=== PATIENT | female | born 1975 | race African-American/Black ===

== ENCOUNTER 2016-10-08 10:58 | Observation (INO) | payer MEDICAID ==
[~2016-10-08] VITALS: Ht 175.3 cm; Wt 117.3 kg
[2016-10-08] VITALS (7 sets, daily range): BP systolic 141–189; BP diastolic 78–128; PULSE 47–69; TEMP 97.9–98.7
[~2016-10-08 10:58] MED LIST: PHENERGAN 25 TA25 MG PO; TYLENOL 500MG500 MG
[2016-10-08 12:02] LABS: BASO % 0.6 % (0.0-2.0); EOS # 0.2 (0.0-0.7); EOS % 3.9 % (0-4.0); GRAN # 2.2 (1.4-6.5); LYMPH # 2.1 (1.2-3.4); LYMPH % 41.4 % (20.0-51.0); MEAN CELL VOLUME 79 fl (80.0-100.0); MEAN CORPUSCULAR HGB CONC 29 g/dl (33.0-37.0); MEAN PLATELET VOLUME 10.1 fl (7.4-10.4); MONO # 0.5 (0.1-0.6); MONO % 9.9 % (1.7-9.3); PLATELET COUNT 365 K/mm3 (130-400); RED BLOOD COUNT 4.28 M/mm3 (4.10-5.30); REDCELL DISTRIBUTION WIDTH-CV 20.5 % (11.5-14.5); WHITE BLOOD COUNT 5.1 K/mm3 (4.8-10.8)
[2016-10-08 12:04] LABS: MEAN CORPUSCULAR HEMOGLOBIN 23 pg (27.0-31.0)
[2016-10-08 12:13] LABS: ADJUSTED CALCIUM 9.2 mg/dL (8.4-10.2); ALBUMIN 3.9 gm/dL (3.5-5.0); BILIRUBIN,TOTAL 0.6 mg/dL (0.0-1.0); CALCIUM 9.1 mg/dL (8.4-10.2); CREATININE, serum 0.73 mg/dL (0.52-1.25); POTASSIUM 4.4 mmol/L (3.4-5.0); TOTAL PROTEIN 7.5 gm/dL (6.4-8.2)
[2016-10-09] VITALS (9 sets, daily range): BP systolic 107–179; BP diastolic 63–110; PULSE 63–75; TEMP 97.6–98.6
[2016-10-09 07:04] LABS: CHOLESTEROL 117 mg/dL (120-200); HDL CHOLESTEROL 37 mg/dL; LDL CHOLESTEROL 55 mg/dL; TRIGLYCERIDE 126 mg/dL
[2016-10-09 07:23] LABS: MAGNESIUM 1.8 mg/dL (1.6-2.3)
[2016-10-09 07:26] LABS: C-REACTIVE PROTEIN < 0.5 mg/dL (0.0-0.9)
[2016-10-09 11:23] LABS: FERRITIN 7 ng/mL (6-137)
[2016-10-09 11:57] LABS: TOTAL IRON BINDING CAPACITY 413 ug/dL (265-497)
[2016-10-09 12:32] LABS: RETIC % 0.8 % (0.5-3.52)
[2016-10-09 13:20] LABS: HOMOCYSTEINE 5.4 umol/L (4.0-14.0)
[2016-10-10 00:44] VITALS: BP 144/72; PULSE 57; TEMP 98.4
[2016-10-10 04:06] VITALS: BP 166/99; PULSE 56; TEMP 98.2
[2016-10-10 06:53] LABS: BASO % 0.4 % (0.0-2.0); EOS # 0.2 (0.0-0.7); EOS % 4.6 % (0-4.0); GRAN # 2.4 (1.4-6.5); GRAN % 52.9 % (42.2-75.2); LYMPH # 1.5 (1.2-3.4); LYMPH % 33.6 % (20.0-51.0); MEAN CELL VOLUME 79 fl (80.0-100.0); MEAN CORPUSCULAR HGB CONC 30 g/dl (33.0-37.0); MEAN PLATELET VOLUME 10.3 fl (7.4-10.4); MONO # 0.4 (0.1-0.6); MONO % 8.3 % (1.7-9.3); PLATELET COUNT 321 K/mm3 (130-400); RED BLOOD COUNT 4.11 M/mm3 (4.10-5.30); REDCELL DISTRIBUTION WIDTH-CV 20.1 % (11.5-14.5); WHITE BLOOD COUNT 4.6 K/mm3 (4.8-10.8)
[2016-10-10 07:00] LABS: HEMATOCRIT 32.3 % (37.0-47.0); HEMOGLOBIN 9.6 g/dl (12.5-16.0); MEAN CORPUSCULAR HEMOGLOBIN 23 pg (27.0-31.0)
[2016-10-10 07:51] VITALS: BP 144/71; PULSE 61; TEMP 98.3
[2016-10-10] MEDS ORDERED: LOPRESSOR 550 MG/TAB PO (08:40)
[2016-10-10] MEDS ORDERED: FERROUS SU325 MG/TAB PO (08:41)
[2016-10-10] MEDS ORDERED: PRINZIDE 12.5 M1 TA1 PO (08:48)
== END 2016-10-10 10:21 | disposition home or self-care (01) ==
LOC: COL.ER 10:58 → MEDICAL 13:07
PROVIDERS: Emergency Medicine; Family Medicine; Physician Assistant
DX: R20.0 Anesthesia of skin (principal); R27.0 Ataxia, unspecified; I10 Essential (primary) hypertension; D50.9 Iron deficiency anemia, unspecified; F17.210 Nicotine dependence, cigarettes, uncomplicated; R51 Headache; Z79.01 Long term (current) use of anticoagulants; Z82.3 Family history of stroke; Z83.3 Family history of diabetes mellitus; Z82.49 Family history of ischemic heart disease and other diseases of the circulatory system; Z79.4 Long term (current) use of insulin
CPT/HCPCS: 99222-AI; 99239; G0378; G8978-GP; G8979-GP; G8980-GP; G8987-GO; G8988-GO; G9168-GN; G9169-GN; J1650; J7030

== ENCOUNTER 2017-05-18 09:19 | Emergency (ER) | payer MEDICAID ==
[~2017-05-18] VITALS: Ht 175.3 cm; Wt 90.9 kg
[~2017-05-18 09:19] MED LIST changes: +FERROUS SU325 MG/TAB PO; +LOPRESSOR 550 MG/TAB PO; +PRINZIDE 12.5 M1 TA1 PO
[2017-05-18 09:22] VITALS: TEMP 97.8
[2017-05-18 10:02] LABS: BASO % 0.4 % (0.0-2.0); EOS % 0.4 % (0-4.0); GRAN # 5.4 (1.4-6.5); GRAN % 74.1 % (42.2-75.2); HEMATOCRIT 35.1 % (37.0-47.0); HEMOGLOBIN 10.9 g/dl (12.5-16.0); LYMPH # 1.4 (1.2-3.4); MEAN CELL VOLUME 85 fl (80.0-100.0); MEAN CORPUSCULAR HEMOGLOBIN 26 pg (27.0-31.0); MEAN CORPUSCULAR HGB CONC 31 g/dl (33.0-37.0); MONO # 0.4 (0.1-0.6); PLATELET COUNT 417 K/mm3 (130-400); RED BLOOD COUNT 4.14 M/mm3 (4.10-5.30); REDCELL DISTRIBUTION WIDTH-CV 14.7 % (11.5-14.5)
[2017-05-18 10:15] LABS: ALANINE AMINOTRANSFERASE 32 U/L (9-52); ALBUMIN 4.3 gm/dL (3.5-5.0); ALKALINE PHOSPHATASE 77 U/L (50-136); ANION GAP 8 mmol/L (7-16); AST,SGOT 23 U/L (15-37); BILIRUBIN,TOTAL 0.5 mg/dL (0.0-1.0); BLOOD UREA NITROGEN 13 mg/dL (7-17); CALCIUM 9.8 mg/dL (8.4-10.2); CARBON DIOXIDE 21 mmol/L (22-30); CHLORIDE 107 mmol/L (98-107); CREATININE, serum 0.77 mg/dL (0.52-1.25); GLUCOSE 122 mg/dL (74-106); LIPASE 85 U/L (23-300); POTASSIUM 3.8 mmol/L (3.4-5.0); SODIUM 136 mmol/L (137-145); TOTAL PROTEIN 8.3 gm/dL (6.4-8.2)
[2017-05-18 10:24] LABS: C-REACTIVE PROTEIN < 0.5 mg/dL (0.0-0.9)
[2017-05-18 11:44] VITALS: BP 173/75; PULSE 67
== END 2017-05-18 11:52 | disposition home or self-care (01) ==
LOC: COL.ER 09:19
PROVIDERS: Physician Assistant
DX: R11.10 Vomiting, unspecified (principal); R19.7 Diarrhea, unspecified; R10.11 Right upper quadrant pain; I10 Essential (primary) hypertension; E66.9 Obesity, unspecified; Z98.890 Other specified postprocedural states; Z68.29 Body mass index [BMI] 29.0-29.9, adult
CPT/HCPCS: J1170; J2405; J2765; J7030

== ENCOUNTER → 2017-09-08 | Outpatient (CLI) | payer MEDICAID ==
[2017-09-08 14:38] LABS: BASO % 0.6 % (0.0-2.0); EOS # 0.2 (0.0-0.7); GRAN # 2.6 (1.4-6.5); GRAN % 51.7 % (42.2-75.2); HEMOGLOBIN 10.8 g/dl (12.5-16.0); LYMPH # 1.6 (1.2-3.4); LYMPH % 32.7 % (20.0-51.0); MEAN CELL VOLUME 80 fl (80.0-100.0); MEAN CORPUSCULAR HEMOGLOBIN 24 pg (27.0-31.0); MEAN CORPUSCULAR HGB CONC 31 g/dl (33.0-37.0); MEAN PLATELET VOLUME 10.5 fl (7.4-10.4); MONO # 0.5 (0.1-0.6); MONO % 10.8 % (1.7-9.3); PLATELET COUNT 330 K/mm3 (130-400); RED BLOOD COUNT 4.42 M/mm3 (4.10-5.30); REDCELL DISTRIBUTION WIDTH-CV 17.5 % (11.5-14.5)
[2017-09-08 14:39] LABS: HEMATOCRIT 35.4 % (37.0-47.0)
[2017-09-08 14:46] LABS: ALANINE AMINOTRANSFERASE 23 U/L (9-52); ALBUMIN 3.7 gm/dL (3.5-5.0); ALKALINE PHOSPHATASE 81 U/L (50-136); ANION GAP 8 mmol/L (7-16); AST,SGOT 129 U/L (15-37); BILIRUBIN,TOTAL 0.4 mg/dL (0.0-1.0); BLOOD UREA NITROGEN 17 mg/dL (7-17); CALCIUM 10.2 mg/dL (8.4-10.2); CARBON DIOXIDE 25 mmol/L (22-30); CHLORIDE 108 mmol/L (98-107); CHOLESTEROL 146 mg/dL (120-200); CHOLESTEROL RISK RATIO 3.5; CREATININE, serum 0.84 mg/dL (0.52-1.25); GLUCOSE 96 mg/dL (74-106); HDL CHOLESTEROL 41 mg/dL; LDL CHOLESTEROL 89 mg/dL; POTASSIUM 4.1 mmol/L (3.4-5.0); SODIUM 141 mmol/L (137-145); TOTAL PROTEIN 8.1 gm/dL (6.4-8.2); TRIGLYCERIDE 80 mg/dL
[2017-09-08 14:47] LABS: TRICYCLIC ANTIDEPRESS URINE NEGATIVE
[2017-09-08 15:07] LABS: HCG,QUANTITATIVE < 2 mIU/mL (0-5)
[2017-09-08 15:15] LABS: THYROID STIMULATING HORMONE 0.767 uIU/mL (0.465-4.680)
== END ==
LOC: COL.LAB 09:49
PROVIDERS: Family Medicine
DX: Z13.1 Encounter for screening for diabetes mellitus (principal); Z13.220 Encounter for screening for lipoid disorders; I10 Essential (primary) hypertension; R20.8 Other disturbances of skin sensation; N91.2 Amenorrhea, unspecified

== ENCOUNTER 2017-09-15 20:15 | Emergency (ER) | payer MEDICAID ==
[~2017-09-15] VITALS: Ht 175.3 cm; Wt 106.8 kg
[2017-09-15 20:32] VITALS: TEMP 100
[2017-09-15] MEDS ORDERED: HCTZ 25MG TAB25 MG PO (20:32)
[2017-09-15 20:54] LABS: BASO % 0.2 % (0.0-2.0); EOS % 0.4 % (0-4.0); GRAN # 3.9 (1.4-6.5); GRAN % 68.6 % (42.2-75.2); HEMATOCRIT 39.1 % (37.0-47.0); LYMPH # 1.3 (1.2-3.4); LYMPH % 22.6 % (20.0-51.0); MEAN CELL VOLUME 79 fl (80.0-100.0); MEAN CORPUSCULAR HEMOGLOBIN 24 pg (27.0-31.0); MEAN CORPUSCULAR HGB CONC 31 g/dl (33.0-37.0); MEAN PLATELET VOLUME 10.2 fl (7.4-10.4); MONO # 0.5 (0.1-0.6); PLATELET COUNT 354 K/mm3 (130-400); RED BLOOD COUNT 4.95 M/mm3 (4.10-5.30); REDCELL DISTRIBUTION WIDTH-CV 17.4 % (11.5-14.5)
[2017-09-15 21:58] LABS: ALBUMIN 4.1 gm/dL (3.5-5.0); BILIRUBIN,TOTAL 0.6 mg/dL (0.0-1.0); C-REACTIVE PROTEIN 0.9 mg/dL (0.0-0.9); CALCIUM 10.2 mg/dL (8.4-10.2); CREATININE, serum 0.77 mg/dL (0.52-1.25); TOTAL PROTEIN 8.5 gm/dL (6.4-8.2)
[2017-09-15 22:31] LABS: COLLECTION METHOD CLEAN CATCH
[2017-09-15 22:39] LABS: MUCOUS Present /lpf; PH 5 (5-8); URINE APPEARANCE Cloudy; URINE BACTERIA None Seen /hpf; URINE BILIRUBIN Negative (NEGATIVE); URINE BLOOD 3+ (NEGATIVE); URINE COLOR Yellow; URINE GLUCOSE 1+ (NEGATIVE); URINE KETONE 2+ (NEGATIVE); URINE LEUKOCYTE ESTERASE Negative (NEGATIVE); URINE NITRATE Negative (NEGATIVE); URINE PROTEIN(semi-quant) 2+ (NEGATIVE); URINE UROBILINOGEN Negative (NEGATIVE)
[2017-09-15] MEDS ORDERED: ZOFRAN 4MG T4 MG/TAB PO (22:47)
[2017-09-15] MEDS ORDERED: NORVASC 5MG5 MG/TAB PO (22:53)
[2017-09-15 23:48] VITALS: BP 161/93; PULSE 47
== END 2017-09-16 00:01 | disposition home or self-care (01) ==
LOC: COL.ER 20:15
PROVIDERS: Emergency Medicine
DX: I10 Essential (primary) hypertension (principal); R10.13 Epigastric pain; R11.2 Nausea with vomiting, unspecified; F17.210 Nicotine dependence, cigarettes, uncomplicated; Z98.890 Other specified postprocedural states
CPT/HCPCS: J2270; J2405; J2550; J7030

== ENCOUNTER → 2017-10-06 | Outpatient (CLI) | payer MEDICAID ==
[~2017-10-06] MED LIST changes: +HCTZ 25MG TAB25 MG PO; +NORVASC 5MG5 MG/TAB PO; +ZOFRAN 4MG T4 MG/TAB PO
[2017-10-06 16:30] LABS: HIV 1/2 Antibodies Non-Reactive; HIV-1p24 Antigen Non-Reactive
== END ==
LOC: COL.LAB 09:36
PROVIDERS: Family Medicine
DX: Z11.3 Encounter for screening for infections with a predominantly sexual mode of transmission (principal)

== ENCOUNTER 2019-09-12 18:09 | Inpatient (IN) | payer MEDICAID ==
[2019-09-12] VITALS (105 sets, daily range): BP systolic 116–147; BP diastolic 62–98; PULSE 94–111; TEMP 97.5–98.4; O2SAT 85–100
[~2019-09-12] VITALS: Ht 175.3 cm; Wt 105.4 kg
[2019-09-12 18:42] LABS: MEAN CELL VOLUME 92 fl (80.0-100.0); MEAN CORPUSCULAR HGB CONC 32 g/dl (33.0-37.0); MEAN PLATELET VOLUME 9.9 fl (7.4-10.4); PLATELET COUNT 338 K/mm3 (130-400); RED BLOOD COUNT 1.23 M/mm3 (4.10-5.30); REDCELL DISTRIBUTION WIDTH-CV 15.4 % (11.5-14.5)
[2019-09-12 18:46] LABS: HEMATOCRIT 11.3 % (37.0-47.0); HEMOGLOBIN 3.6 g/dl (12.5-16.0); MEAN CORPUSCULAR HEMOGLOBIN 29 pg (27.0-31.0)
[2019-09-12 18:52] LABS: BILIRUBIN,TOTAL 0.2 mg/dL (0.0-1.0); CALCIUM 8.8 mg/dL (8.4-10.2); CREATININE, serum 1.83 (0.52-1.25); POTASSIUM 4.5 mmol/L (3.4-5.0); TOTAL PROTEIN 5.7 gm/dL (6.4-8.2)
[2019-09-12 18:57] LABS: ANISOCYTOSIS 2+; HYPOCHROMIA 2+; LYMPHOCYTE 21 % (20.0-51.0); NEUTROPHILS 78 % (42.0-75.2); PLATELET ESTIMATE NORMAL (NORMAL)
[2019-09-12 19:05] LABS: TROPONIN-I 0.154 ng/mL (0.000-0.035)
--- NOTE | 2019-09-12 20:40 | NUR ---
Pt report received from Chandler Rao RN in ED.
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
[2019-09-13] VITALS (679 sets, daily range): BP systolic 106–158; BP diastolic 57–116; PULSE 80–101; TEMP 97.9–99.2; O2SAT 59–100
[2019-09-13] MEDS ORDERED: ADVIL200 MG PO (01:19)
[2019-09-13 02:48] LABS: HEMATOCRIT 16.3 % (37.0-47.0); HEMOGLOBIN 5.4 g/dl (12.5-16.0)
[2019-09-13 05:24] LABS: CREATININE, serum 1.57 (0.52-1.25); POTASSIUM 4.2 mmol/L (3.4-5.0)
--- NOTE | 2019-09-13 07:05 | NUR ---
Report provided to Desiree WHITAKER.
--- NOTE | 2019-09-13 07:21 | NUR ---
Report received from JULIANNE Machuca. Patient resting in bed with no complaints. 3rd unit of PRBC is infusing. VS stable. Care taken over at this time.
--- NOTE | 2019-09-13 08:50 | NUR ---
DR. DEL ANGEL IN ROOM TO SEE PATIENT. SHE IS UNABLE TO FORM SENTENCES AND C/O NUMBNESS TO RIGHT ARM AND HAND. STAT CT HEAD ORDERED.
[2019-09-13 10:00] LABS: COLLECTION METHOD CLEAN CATCH
[2019-09-13 10:07] LABS: PH 5 (5-8); SQUAMOUS EPITHELIAL 0-2 /hpf; URINE APPEARANCE Clear; URINE BACTERIA Rare /hpf; URINE BILIRUBIN Negative (NEGATIVE); URINE BLOOD Negative (NEGATIVE); URINE COLOR Yellow; URINE GLUCOSE Negative (NEGATIVE); URINE KETONE Negative (NEGATIVE); URINE LEUKOCYTE ESTERASE Negative (NEGATIVE); URINE NITRATE Negative (NEGATIVE); URINE PROTEIN(semi-quant) Negative (NEGATIVE); URINE RBC None Seen /hpf; URINE UROBILINOGEN Negative (NEGATIVE); URINE WBC 0-2 /hpf
--- NOTE | 2019-09-13 11:25 | NUR ---
KG met with the patient to discuss discharge plan. The patient states that she lives in [place] with her mother, aunt, and four children: Patricia, Mechelle, Vonnie, and Georgi. She reports that she was needing assistance with using the restroom prior to hospitalization and does not have any DME. The patient was seeing Dr. Margareth Albert, but has not been set up with a new PCP since Dr. Albert left the clinic. She reports that she used to go to Dr. Garfield Tucker and would be interested in getting set back up with him. KG contacted Dr. Tucker's office and secured the patient an appointment on , 09/20, at 1000, via a video visit from Dr. Tucker's CYCLE ANALYST, Alysha Sanchez. KG notified the patient of appointment. SW to inform the patient's RN of appointment. The patient does not have advanced directives completed. She states that she is not and that she has six children. Five adult children. The patient's RN, Desiree, provided KG with the patient's son, Georgi's phone number. (#[phone]). The patient plans to return home upon discharge. She states that she has concerns with using the restroom though. She states she has been having syncopal while going to and using the restroom. KG contacted and updated the patient's son, Georgi. Georgi reports that the patient only lives with her mother and four children. He confirms that the patient has six children: Mechelle, Patricia, Tabias, Justin, Raj, and himself. The patient is to have an EGD today. SW to continue to follow.
--- NOTE | 2019-09-13 12:30 | NUR ---
PATIENT C/O'S PAIN TO HEAD AND RIGHT SIDE OF ABDOMEN. DR. DEL ANGEL ON UNIT. HE GIVES ORDER FOR MORPHINE. WILL ADMINISTER AND CONTINUE TO MONITOR.
[2019-09-13 13:15] LABS: HEMATOCRIT 21.8 % (37.0-47.0); HEMOGLOBIN 7.3 g/dl (12.5-16.0)
--- NOTE | 2019-09-13 13:50 | NUR ---
PATIENT RETURNS FROM ENDO AT THIS TIME. SHE IS ALERT AND ORIENTED. ASKING FOR PAIN MEDICATION FOR HEADACHE.
--- NOTE | 2019-09-13 14:39 | NUR ---
The patient was interested in completing a DPOA-HC. She designated her son Georgi Muñoz and designated her other son, Raj Michael, as the alternate. SW and RT, Patience, witnessed the patient's signature. The patient was provided with the original and some copies. A copy was placed in the patient's chart.
--- NOTE | 2019-09-13 15:06 | NUR ---
PATIENT GOES TO MRI AT THIS TIME.
--- NOTE | 2019-09-13 16:46 | NUR ---
UPDATE GIVEN TO SON TIERRA. PHONE NUMBER FOR [facility] IS [phone].
--- NOTE | 2019-09-13 19:15 | NUR ---
REPORT GIVEN TO JULIANNE GALINDO.
[2019-09-14] VITALS (471 sets, daily range): BP systolic 130–159; BP diastolic 67–112; PULSE 58–83; TEMP 98–99.5; O2SAT 54–100
[2019-09-14 01:05] LABS: HEMATOCRIT 19.7 % (37.0-47.0); HEMOGLOBIN 6.7 g/dl (12.5-16.0)
--- NOTE | 2019-09-14 07:30 | NUR ---
Report received from JULIANNE Batista.
--- NOTE | 2019-09-14 07:48 | NUR ---
Report given to Oliva Choi RN.
--- NOTE | 2019-09-14 08:00 | NUR ---
Assessment completed. Pt eating breakfast in bed and watching tv. PT A/Ox4. Denies any pain. Discussed plan of care r/t lab draws post blood transfusion and dr dominguez. Pt asking if she can go home today. Explained drs will see her first and labs drawn, then will discuss plan for today. Pt verbalized understanding. Call light in reach.
--- NOTE | 2019-09-14 08:49 | NUR ---
Pt states she wishes to go home. She states she refuses to receive more blood transfusions. Discussed risks involved with refusing medical advice including continued bleed, anemia and risk of potential . Pt states she wishes to talk to the doctor and wants to go home to see her kids. Dr Jack updated on pt's status and refusing medical care.
--- NOTE | 2019-09-14 08:57 | NUR ---
Dr Jack at bedside discussing plan of care with pt.
[2019-09-14 08:59] LABS: CALCIUM 8.9 mg/dL (8.4-10.2); CREATININE, serum 1.02 (0.52-1.25)
[2019-09-14 09:07] LABS: BASO % 0.3 % (0.0-2.0); EOS # 0.1 (0.0-0.7); EOS % 0.7 % (0-4.0); GRAN # 4.6 (1.4-6.5); GRAN % 64.1 % (42.2-75.2); LYMPH % 28.4 % (20.0-51.0); MEAN CELL VOLUME 90 fl (80.0-100.0); MEAN CORPUSCULAR HGB CONC 33 g/dl (33.0-37.0); MEAN PLATELET VOLUME 9.6 fl (7.4-10.4); MONO # 0.4 (0.1-0.6); MONO % 5.9 % (1.7-9.3); RED BLOOD COUNT 3.02 M/mm3 (4.10-5.30); REDCELL DISTRIBUTION WIDTH-CV 15.4 % (11.5-14.5)
[2019-09-14 09:18] LABS: HEMATOCRIT 27.2 % (37.0-47.0); HEMOGLOBIN 8.9 g/dl (12.5-16.0); MEAN CORPUSCULAR HEMOGLOBIN 29 pg (27.0-31.0); PLATELET COUNT 221 K/mm3 (130-400)
--- NOTE | 2019-09-14 13:45 | NUR ---
Phone report given to David, Medical RN. Room not ready yet. David will call back when room is cleaned.
--- NOTE | 2019-09-14 14:58 | NUR ---
Pt transferred to room 357 via wheelchair at 1445. Pt transferred to bed with x1 assist. Steady gait. JULIANNE Hernandez in room. Pt in bed with call light in reach.
--- NOTE | 2019-09-14 19:56 | NUR ---
Assessment complete. Lungs clear. Heart sounds normal. Bowels active x4. Pulses strong throughout. No edema noted. IV right hand without complications. Patient alert and orientated. Appears anxious-reports feeling cold and ready to go home. Denies pain. Denies needs. Gown changed and sheet changed. Call light in reach. Will monitor
--- NOTE | 2019-09-15 00:15 | NUR ---
Up to restroom and returned to bed. Denies needs. Call light in reach.
--- NOTE | 2019-09-15 02:19 | NUR ---
Resting in bed. Denies needs. Call light in reach.
[2019-09-15 04:11] VITALS: BP 153/91; PULSE 70; TEMP 98.1
--- NOTE | 2019-09-15 04:22 | NUR ---
Patient up to restroom and returned to bed. Denies needs. Denies pain. Call light in reach.
--- NOTE | 2019-09-15 06:41 | NUR ---
Patient had uneventful night. Resting in bed this AM. Call light in reach.
--- NOTE | 2019-09-15 07:00 | NUR ---
Report received from JULIANNE Aparicio. PT in bed resting, refusing lab but Dr. Brown and webbing seamer pound net nruse trying to discuss need for lab check in order to dishcarge patient as medically stable. Will continue to monitor.
--- NOTE | 2019-09-15 07:31 | NUR ---
Report given to JULIANNE Beckford
[2019-09-15 08:12] LABS: BASO % 0.3 % (0.0-2.0); EOS # 0.1 (0.0-0.7); EOS % 1.3 % (0-4.0); GRAN # 3.7 (1.4-6.5); GRAN % 60.2 % (42.2-75.2); LYMPH # 1.9 (1.2-3.4); LYMPH % 30.8 % (20.0-51.0); MEAN CELL VOLUME 89 fl (80.0-100.0); MEAN CORPUSCULAR HGB CONC 34 g/dl (33.0-37.0); MEAN PLATELET VOLUME 9.4 fl (7.4-10.4); MONO # 0.4 (0.1-0.6); MONO % 7.1 % (1.7-9.3); PLATELET COUNT 263 K/mm3 (130-400); REDCELL DISTRIBUTION WIDTH-CV 15.4 % (11.5-14.5)
[2019-09-15 08:16] LABS: BILIRUBIN,TOTAL 0.5 mg/dL (0.0-1.0); CALCIUM 9.1 mg/dL (8.4-10.2); CREATININE, serum 0.88 (0.52-1.25); POTASSIUM 3.7 mmol/L (3.4-5.0); TOTAL PROTEIN 5.8 gm/dL (6.4-8.2)
[2019-09-15 08:17] LABS: HEMOGLOBIN 8.4 g/dl (12.5-16.0); MEAN CORPUSCULAR HEMOGLOBIN 30 pg (27.0-31.0)
[2019-09-15 09:23] VITALS: BP 151/93; PULSE 83; TEMP 97.5
--- NOTE | 2019-09-15 10:31 | NUR ---
Assessment charted. PT feeling well, discussed lab results and pt very eager to discharge. Will continue to monitor.
[2019-09-15] MEDS ORDERED: FERROUS SU325 MG/TAB PO (10:39)
[2019-09-15] MEDS ORDERED: NORVASC 5MG5 MG/TAB PO (10:41)
[2019-09-15] MEDS ORDERED: CARAFATE 1GM1 G PO (10:42)
[2019-09-15] MEDS ORDERED: PROTONIX 40MG T40 MG PO (10:42)
--- NOTE | 2019-09-15 12:10 | NUR ---
Discharge teaching completed at this time, pt received packet, answered all questions, reviewed f/u appointments, knows [facility] office should call with appointment date and time. INT dc'd, tip intact. Called son and spoke with him, he picked up pt at this time at the lockstitch front maker. Escorted out via w/c with medical staff, left with all belongings, criteria met.
--- NOTE | 2019-10-17 10:14 | NUR ---
This RN recieved phone call from patient stating was discharged home on Carafate QID x 2 weeks and has only been taking at home once daily since discharge. Questions whether to continue taking or stop since it's been longer than two weeks. Instructed patient to contact PCP for info and states no PCP at this time. Instructed to take medication as prescribed (QID ACHS) until medication gone and to establish with a new PCP.
== END 2019-09-15 12:10 | disposition home or self-care (01) | DRG 377 ==
LOC: COL.ER 18:09 → ICU 19:48 → MEDICAL 09-14 16:43
PROVIDERS: Emergency Medicine; Internal Medicine Gastroenterology; Student in an Organized Health Care Education/Training Program; ADMIT Student in an Organized Health Care Education/Training Program
PROC: 0DB78ZX Excision of Stomach, Pylorus, Via Natural or Artificial Opening Endoscopic, Diagnostic (ICD-10-PCS; principal; 2019-09-13 13:00)
DX: K25.4 Chronic or unspecified gastric ulcer with hemorrhage (principal); I21.A1 Myocardial infarction type 2; D62 Acute posthemorrhagic anemia; N17.9 Acute kidney failure, unspecified; G45.9 Transient cerebral ischemic attack, unspecified; I10 Essential (primary) hypertension; F17.210 Nicotine dependence, cigarettes, uncomplicated; E86.0 Dehydration; R73.9 Hyperglycemia, unspecified; R79.89 Other specified abnormal findings of blood chemistry
CPT/HCPCS: 99223-AI; 99232-AI; 99233-AI; 99239; A9585; C9113; J2270; J2704; J7030; P9016; Q9967

== ENCOUNTER 2020-07-05 12:23 | Observation (INO) | payer MEDICAID ==
[~2020-07-05] VITALS: Ht 175.3 cm; Wt 122.7 kg
[~2020-07-05 12:23] MED LIST changes: +ADVIL200 MG PO; +CARAFATE 1GM1 G PO; +PROTONIX 40MG T40 MG PO
[2020-07-05 13:02] LABS: BASO % 0.3 % (0.0-2.0); EOS # 0.1 (0.0-0.7); EOS % 1.2 % (0-4.0); GRAN % 59.8 % (42.2-75.2); HEMOGLOBIN 13.4 g/dl (12.5-16.0); LYMPH # 2.1 (1.2-3.4); MEAN CELL VOLUME 98 fl (80.0-100.0); MEAN CORPUSCULAR HEMOGLOBIN 30 pg (27.0-31.0); MEAN CORPUSCULAR HGB CONC 31 g/dl (33.0-37.0); MEAN PLATELET VOLUME 10.1 fl (7.4-10.4); MONO # 0.5 (0.1-0.6); MONO % 7.6 % (1.7-9.3); PLATELET COUNT 294 K/mm3 (130-400); RED BLOOD COUNT 4.41 M/mm3 (4.10-5.30); REDCELL DISTRIBUTION WIDTH-CV 13.2 % (11.5-14.5)
[2020-07-05 13:14] LABS: ALANINE AMINOTRANSFERASE 20 U/L (4-34); ALBUMIN 4.1 gm/dL (3.5-5.0); ALKALINE PHOSPHATASE 92 U/L (50-136); ANION GAP 8 mmol/L (7-16); AST,SGOT 38 U/L (15-37); BILIRUBIN,TOTAL 0.5 mg/dL (0.0-1.0); BLOOD UREA NITROGEN 14 mg/dL (7-17); CALCIUM 9.6 mg/dL (8.4-10.2); CARBON DIOXIDE 24 mmol/L (22-30); CHLORIDE 104 mmol/L (98-107); CREATININE, serum 0.78 (0.52-1.25); GLUCOSE 163 mg/dL (74-106); LIPASE 125 U/L (23-300); POTASSIUM 3.6 mmol/L (3.4-5.0); SODIUM 136 mmol/L (137-145); TOTAL PROTEIN 7.9 gm/dL (6.4-8.2)
[2020-07-05 13:25] LABS: TROPONIN-I < 0.012 ng/mL (0.000-0.035)
[2020-07-05 14:15] LABS: COLLECTION METHOD CLEAN CATCH
[2020-07-05 15:08] LABS: TRICYCLIC ANTIDEPRESS URINE NEGATIVE
[2020-07-05 15:18] LABS: MUCOUS Present /lpf; PH 6 (5-8); SQUAMOUS EPITHELIAL 0-2 /hpf; URINE APPEARANCE Clear; URINE BACTERIA None Seen /hpf; URINE BILIRUBIN Negative (NEGATIVE); URINE BLOOD Negative (NEGATIVE); URINE COLOR Yellow; URINE GLUCOSE 2+ (NEGATIVE); URINE KETONE Negative (NEGATIVE); URINE LEUKOCYTE ESTERASE Negative (NEGATIVE); URINE NITRATE Negative (NEGATIVE); URINE PROTEIN(semi-quant) Negative (NEGATIVE); URINE RBC 0-2 /hpf; URINE UROBILINOGEN Negative (NEGATIVE)
--- NOTE | 2020-07-05 20:28 | NUR ---
PATIENT ARRIVED TO ROOM 353 AT THIS TIME FROM THE ER. PATIENT ABLE TO MOVE HERSELF FROM THE ER CART TO THE BED. PATIENT IS LYING IN BED SNORING AT THIS TIME. NO S/S OF DISTRESS
[2020-07-05 20:32] VITALS: BP 159/89; PULSE 76; TEMP 97.5
[2020-07-05 23:45] VITALS: PULSE 72; TEMP 98.1
[2020-07-06 03:54] VITALS: BP 172/89; PULSE 67; TEMP 98.1
[2020-07-06 06:41] LABS: BASO % 0.1 % (0.0-2.0); GRAN # 5.6 (1.4-6.5); GRAN % 75.9 % (42.2-75.2); HEMATOCRIT 43.8 % (37.0-47.0); HEMOGLOBIN 14.5 g/dl (12.5-16.0); LYMPH # 1.3 (1.2-3.4); LYMPH % 17.7 % (20.0-51.0); MEAN CORPUSCULAR HEMOGLOBIN 31 pg (27.0-31.0); MEAN CORPUSCULAR HGB CONC 33 g/dl (33.0-37.0); MEAN PLATELET VOLUME 10.2 fl (7.4-10.4); MONO # 0.5 (0.1-0.6); MONO % 6.2 % (1.7-9.3); PLATELET COUNT 310 K/mm3 (130-400); REDCELL DISTRIBUTION WIDTH-CV 12.7 % (11.5-14.5)
[2020-07-06 06:51] LABS: ALBUMIN 4.4 gm/dL (3.5-5.0); BILIRUBIN,TOTAL 0.7 mg/dL (0.0-1.0); CALCIUM 9.8 mg/dL (8.4-10.2); CREATININE, serum 0.58 (0.52-1.25); POTASSIUM 3.8 mmol/L (3.4-5.0); TOTAL PROTEIN 8.6 gm/dL (6.4-8.2)
[2020-07-06 07:19] LABS: MEAN CELL VOLUME 93 fl (80.0-100.0)
--- NOTE | 2020-07-06 08:00 | NUR ---
Shift assessment complete. Pt lying in bed upon entry, reports chest pain 4/10 and declines pain meds at this time, denies nausea. A&Ox4. Heart RRR. Lungs CTA. INT to left FA w/o S/S complication. Denies needs at this time. Call light in reach.
[2020-07-06 09:19] VITALS: BP 190/93; PULSE 66; TEMP 98
--- NOTE | 2020-07-06 09:30 | NUR ---
Entered pt's room at 0900, pt shouted "be careful, I puked all over the floor." Large puddle of clear emesis noted on floor next to pt's bed and cleaned up. Pt reports nausea still present following vomiting. Brought pt emesis basin and administered zofran. Pt then reported chest pain had increased from 4 to 6. Tylenol administered. BP 190/93 at this time, hydralazine administered per orders. Continuing to monitor.
[2020-07-06 09:58] VITALS: BP 157/86; PULSE 84
[2020-07-06] MEDS ORDERED: NORVASC 10MG10 MG PO (12:43)
[2020-07-06] MEDS ORDERED: HCTZ 25MG TAB25 MG PO (12:53)
[2020-07-06 13:15] VITALS: BP 126/89; PULSE 111; TEMP 97.7
--- NOTE | 2020-07-06 13:45 | NUR ---
Discharge teaching discussed w/pt and all questions answered. IV to left forearm removed w/o S/S complication. Pt ambulated out escorted by this RN to family car at ED entrance. All belongings in tow.
--- NOTE | 2020-07-06 13:58 | NUR ---
Plan to return home independently. Patient reports that she has two sons that are apart of her care. Georgi and Raj .Patient reports PCP is Linda and RX obtained at [facility].Patient denies any care concerns or issues wih using DME. Patient report she may has transportation. No additional concerns.
[2020-07-26] MEDS ORDERED: OMNICEF 300MG300 MG PO (00:44)
== END 2020-07-06 13:50 | disposition home or self-care (01) ==
LOC: COL.ER 12:23 → MEDICAL 18:11
PROVIDERS: Physician Assistant; Student in an Organized Health Care Education/Training Program; ADMIT Family Medicine
DX: I16.0 Hypertensive urgency (principal); E72.51 Non-ketotic hyperglycinemia; E66.01 Morbid (severe) obesity due to excess calories; R55 Syncope and collapse; F17.210 Nicotine dependence, cigarettes, uncomplicated; Z86.73 Personal history of transient ischemic attack (TIA), and cerebral infarction without residual deficits; Z79.899 Other long term (current) drug therapy; Z20.822 Contact with and (suspected) exposure to COVID-19
CPT/HCPCS: 99223-AI; 99239; C9113; G0378; J0360; J1650; J2060; J2270; J2405; J7030

== ENCOUNTER 2020-07-25 18:36 | Emergency (ER) | payer MEDICAID ==
[~2020-07-25] VITALS: Ht 175.3 cm; Wt 111.4 kg
[~2020-07-25 18:36] MED LIST changes: +NORVASC 10MG10 MG PO
[2020-07-25 18:40] VITALS: TEMP 98.1
[2020-07-25 19:31] LABS: BASO % 0.4 % (0.0-2.0); EOS # 0.1 (0.0-0.7); EOS % 1.1 % (0-4.0); GRAN # 3.5 (1.4-6.5); GRAN % 65.6 % (42.2-75.2); HEMATOCRIT 37.3 % (37.0-47.0); LYMPH # 1.3 (1.2-3.4); LYMPH % 24.4 % (20.0-51.0); MEAN CELL VOLUME 93 fl (80.0-100.0); MEAN CORPUSCULAR HEMOGLOBIN 30 pg (27.0-31.0); MEAN CORPUSCULAR HGB CONC 32 g/dl (33.0-37.0); MEAN PLATELET VOLUME 9.3 fl (7.4-10.4); MONO # 0.4 (0.1-0.6); MONO % 8.1 % (1.7-9.3); PLATELET COUNT 520 K/mm3 (130-400); RED BLOOD COUNT 4.02 M/mm3 (4.10-5.30); REDCELL DISTRIBUTION WIDTH-CV 12.5 % (11.5-14.5)
[2020-07-25 19:41] LABS: ALANINE AMINOTRANSFERASE 18 U/L (4-34); ALBUMIN 3.9 gm/dL (3.5-5.0); ALKALINE PHOSPHATASE 74 U/L (50-136); ANION GAP 9 mmol/L (7-16); AST,SGOT 26 U/L (15-37); BILIRUBIN,TOTAL 0.2 mg/dL (0.0-1.0); BLOOD UREA NITROGEN 41 mg/dL (7-17); C-REACTIVE PROTEIN 8.3 mg/dL (0.0-0.9); CARBON DIOXIDE 24 mmol/L (22-30); CHLORIDE 100 mmol/L (98-107); CREATININE, serum 1.57 (0.52-1.25); GLUCOSE 110 mg/dL (74-106); LIPASE 129 U/L (23-300); SODIUM 134 mmol/L (137-145); TOTAL PROTEIN 8.6 gm/dL (6.4-8.2)
[2020-07-25 19:52] LABS: TROPONIN-I < 0.012 ng/mL (0.000-0.035)
[2020-07-25 20:15] LABS: COLLECTION METHOD CLEAN CATCH
[2020-07-25 20:23] LABS: MUCOUS Present /lpf; PH 5 (5-8); URINE APPEARANCE Hazy; URINE BACTERIA None Seen /hpf; URINE BILIRUBIN Negative (NEGATIVE); URINE BLOOD Negative (NEGATIVE); URINE COLOR Yellow; URINE GLUCOSE Negative (NEGATIVE); URINE KETONE Negative (NEGATIVE); URINE LEUKOCYTE ESTERASE Trace (NEGATIVE); URINE NITRATE Negative (NEGATIVE); URINE PROTEIN(semi-quant) 1+ (NEGATIVE); URINE RBC 0-2 /hpf; URINE UROBILINOGEN Negative (NEGATIVE)
[2020-07-25] MEDS ORDERED: CARAFATE 1GM1 G PO (21:47)
[2020-07-25 22:03] VITALS: BP 139/89; PULSE 90
[2020-07-26] MEDS ORDERED: OMNICEF 300MG300 MG PO (00:44)
== END 2020-07-25 22:18 | disposition home or self-care (01) ==
LOC: COL.ER 18:36
PROVIDERS: Nurse Practitioner Primary Care
DX: N39.0 Urinary tract infection, site not specified (principal); R11.0 Nausea; I10 Essential (primary) hypertension; F17.210 Nicotine dependence, cigarettes, uncomplicated
CPT/HCPCS: J2405; J7030; Q9967

== ENCOUNTER 2020-08-14 11:58 | Inpatient (IN) | payer MEDICAID ==
[2020-08-14] VITALS (141 sets, daily range): BP systolic 104–135; BP diastolic 44–105; PULSE 91–113; TEMP 96.8–98.8; O2SAT 86–100
[~2020-08-14] VITALS: Ht 175.3 cm; Wt 108.0 kg
[~2020-08-14 11:58] MED LIST changes: +OMNICEF 300MG300 MG PO
[2020-08-14 13:02] LABS: INR 1.3 (0.8-3.0); PROTHROMBIN TIME 14.5 SECONDS (9.7-12.8)
[2020-08-14 13:05] LABS: ALBUMIN 3.2 gm/dL (3.5-5.0); ALKALINE PHOSPHATASE 52 U/L (50-136); ANION GAP 13 mmol/L (7-16); AST,SGOT 18 U/L (15-37); BILIRUBIN,TOTAL < 0.1 mg/dL (0.0-1.0); BLOOD UREA NITROGEN 35 mg/dL (7-17); CALCIUM 9.3 mg/dL (8.4-10.2); CARBON DIOXIDE 20 mmol/L (22-30); CHLORIDE 98 mmol/L (98-107); CREATININE, serum 1.46 (0.52-1.25); GLUCOSE 179 mg/dL (74-106); POTASSIUM 3.2 mmol/L (3.4-5.0); SODIUM 131 mmol/L (137-145); TOTAL PROTEIN 6.6 gm/dL (6.4-8.2)
[2020-08-14 13:06] LABS: MEAN CELL VOLUME 96 fl (80.0-100.0); MEAN CORPUSCULAR HGB CONC 31 g/dl (33.0-37.0); MEAN PLATELET VOLUME 9.1 fl (7.4-10.4); PLATELET COUNT 556 K/mm3 (130-400); RED BLOOD COUNT 1.36 M/mm3 (4.10-5.30); REDCELL DISTRIBUTION WIDTH-CV 14.7 % (11.5-14.5)
[2020-08-14 13:11] LABS: ALANINE AMINOTRANSFERASE 16 U/L (4-34); MEAN CORPUSCULAR HEMOGLOBIN 29 pg (27.0-31.0)
[2020-08-14 13:12] LABS: HEMATOCRIT 13.1 % (37.0-47.0)
[2020-08-14 13:36] LABS: BAND 9 % (0-10); EOSINOPHIL 1 % (0-4); HYPOCHROMIA 1+; LYMPHOCYTE 13 % (20.0-51.0); NEUTROPHILS 75 % (42.0-75.2); NUCLEATED RED BLOOD CELL 2 (0-6); PLATELET ESTIMATE INCREASED (NORMAL)
[2020-08-14 14:52] LABS: TRICYCLIC ANTIDEPRESS URINE NEGATIVE
[2020-08-14] MEDS ORDERED: DYAZIDE 25 MG-31 CAP PO (15:22)
--- NOTE | 2020-08-14 16:47 | NUR ---
Vancomycin Initial Dosing Pharmacy Note Ordering provider: Gray Buck MD Indication/duration: EMPIRIC Relevant comorbidities: TRISHA LABS: WBC 13.7, SCr 1.5 (baseline ~0.8), CrCl 58 Recommendation: vancomycin 12 mg/kg Loading dose: 2 grams (given in ED) Maintenance dose: 1.25 grams every 12 hours. monitor renal fxn closely and adjust as appropriate. Trough goal: 15.
[2020-08-14 19:06] LABS: ALCOHOL(ethanol),MEDICAL < 10 mg/dL
--- NOTE | 2020-08-14 19:10 | NUR ---
1744- PT to ICU from ED. PT is alert oriented and calm. PT denies any pain or complaints at this time. Vitals are WNL. Blood is running at 150 ml/hr with NS piggy back. PT is afebrile. PT answers all questions appropriately. PT understands use of call light and agreess to call for help. 1910- PT report given to JULIANNE Beasley. Care relinquished at this time.
--- NOTE | 2020-08-14 19:15 | NUR ---
RECEIVED REPORT FROM JULIANNE BEASLEY. PATIENT RESTING IN BED. FIRST BLOOD TRANSFUSION HAS JUST FINISHED. VSS. CALL LIGHT WITHIN REACH. PROTONIX GTT RUNNING.
[2020-08-15] VITALS (303 sets, daily range): BP systolic 113–138; BP diastolic 57–104; PULSE 65–104; TEMP 97.6–98.9; O2SAT 42–100
[2020-08-15 01:55] LABS: HEMATOCRIT 18.8 % (37.0-47.0)
[2020-08-15 01:57] LABS: HEMOGLOBIN 6.1 g/dl (12.5-16.0)
[2020-08-15 01:59] LABS: POTASSIUM 3.3 mmol/L (3.4-5.0)
[2020-08-15 02:15] LABS: TROPONIN-I 6 HR POST INITIAL 0.023 ng/mL (0.000-0.034)
--- NOTE | 2020-08-15 06:45 | NUR ---
ATTEMPTED TO RAPID TEST FOR COVID WITH SWAB ON PATIENT. PATIENT HAD STRONG FEELINGS ABOUT THE TEST A FLINCHED AWAY SEVERAL TIME BEFORE REFUSING TO TRYING ANOTHER SWAB. EDUCATED ON IMPORTANCE OF NEEDING SWAB FOR EGD TODAY. PATIENT STILL REFUSING. [facility] ABOUT [facility]EED[facility] WITH TEST.
--- NOTE | 2020-08-15 07:10 | NUR ---
PT left for EGD via bed with JULIANNE Villalta.
--- NOTE | 2020-08-15 08:10 | NUR ---
PT back from EGD, comfortable in bed. Vitals WNL. PT appears to be in a pleasant mood without complaints. Morning assessment performed. PT is afebrile. PT is requesting breakfast, This RN advised the hosptilast, Dr. Buck would be notifed of request. PT verbalizes understanding of call light use and will call for help.
[2020-08-15 08:29] LABS: BASO % 0.2 % (0.0-2.0); EOS # 0.1 (0.0-0.7); EOS % 0.7 % (0-4.0); GRAN # 5.5 (1.4-6.5); GRAN % 68.1 % (42.2-75.2); LYMPH # 1.7 (1.2-3.4); LYMPH % 21.2 % (20.0-51.0); MEAN CORPUSCULAR HGB CONC 32 g/dl (33.0-37.0); MEAN PLATELET VOLUME 8.8 fl (7.4-10.4); MONO # 0.7 (0.1-0.6); MONO % 8.9 % (1.7-9.3); REDCELL DISTRIBUTION WIDTH-CV 15.9 % (11.5-14.5)
[2020-08-15 08:41] LABS: ALBUMIN 2.2 gm/dL (3.5-5.0); BILIRUBIN,TOTAL 0.2 mg/dL (0.0-1.0); CALCIUM 7.2 mg/dL (8.4-10.2); CREATININE, serum 0.86 (0.52-1.25); MAGNESIUM 1.9 mg/dL (1.6-2.3); POTASSIUM 3.3 mmol/L (3.4-5.0); TOTAL PROTEIN 4.7 gm/dL (6.4-8.2)
[2020-08-15 08:45] LABS: HEMATOCRIT 19.1 % (37.0-47.0); HEMOGLOBIN 6.1 g/dl (12.5-16.0); MEAN CELL VOLUME 91 fl (80.0-100.0); MEAN CORPUSCULAR HEMOGLOBIN 29 pg (27.0-31.0); PLATELET COUNT 325 K/mm3 (130-400)
[2020-08-15 08:51] LABS: TROPONIN-I 0.013 ng/mL (0.000-0.035)
[2020-08-15 09:09] LABS: IRON,SERUM < 10 ug/dL (35-150)
[2020-08-15 09:18] LABS: TOTAL IRON BINDING CAPACITY 214 ug/dL (265-497)
--- NOTE | 2020-08-15 12:36 | NUR ---
First visit from the resident care provider. No needs right now.
[2020-08-15 14:14] LABS: HEMATOCRIT 24.2 % (37.0-47.0); HEMOGLOBIN 7.7 g/dl (12.5-16.0)
--- NOTE | 2020-08-15 14:20 | NUR ---
report given to JULIANNE Escalera at 4350. PT is now up in room 309 on medical floor. Physical therapy in working with PT at this time.
--- NOTE | 2020-08-15 14:21 | NUR ---
Ged Instructor met with the patient to complete intake. The patient lives in [place] with four of her six children. The patient denies DME use. The patient is independent with ADLs but her daughter is supportive during showers as needed. The patient's PCP is Dr. Mckeon. The patient receives medications from [facility]. The patient has advanced directives in the EMR. The patient's DPOA-HC designates her sons, Georgi and Rja. The patient plans to return home at discharge. PT/OT ordered. The patient inquired about life alert. SW provided life alert pamphlets. Discharge disposition: Home, lives with four of her six children.
--- NOTE | 2020-08-15 18:43 | NUR ---
Patient transferred up from the ICU. Upon assessment normal S1 and S2 sounds were present, lungs clear to auscultation bilaterally, bowel sounds present all four quadrants, pedal and radial pulses +2 bilaterally, +1 edema of BLE. Vital signs WNL. Patient C/O and aching in her stomach along with queasieness. Reports this being normal and tolerable. Patient denies any further pain or discomfort at this time. Fluids running through PICC line in right arm as ordered. Will continiue to monitor. Patient A&O. Activity up with assist and walker. Patient denies any further needs at this time. Call light within reach.
[2020-08-16 00:10] LABS: HAPTOGLOBIN 268 mg/dL (35-250); TRANSFERRIN 133 mg/dL (180-382)
[2020-08-16 03:36] VITALS: BP 111/59; PULSE 94; TEMP 98.6
--- NOTE | 2020-08-16 06:08 | NUR ---
NO NEW ISSUES NOTED OR REPORTED BY PATIENT THROUGHOUT THE NIGHT.
--- NOTE | 2020-08-16 07:07 | NUR ---
Pt. awake and in bed at this time. Pt. up to use the restroom, ambulated with walker, no dizziness reported. Fluids running as ordered. Patient does not complain of any pain or discomfort at this time. Patient denies any further needs. Will continue to monitor. Call light within reach. Fall percautions in place.
[2020-08-16 08:14] VITALS: BP 147/89; PULSE 90; TEMP 98.1
[2020-08-16 08:50] LABS: BASO % 0.4 % (0.0-2.0); EOS # 0.1 (0.0-0.7); EOS % 1.2 % (0-4.0); GRAN # 5.2 (1.4-6.5); GRAN % 69.2 % (42.2-75.2); LYMPH # 1.5 (1.2-3.4); LYMPH % 20.7 % (20.0-51.0); MEAN CELL VOLUME 89 fl (80.0-100.0); MEAN CORPUSCULAR HGB CONC 32 g/dl (33.0-37.0); MEAN PLATELET VOLUME 8.8 fl (7.4-10.4); MONO # 0.6 (0.1-0.6); MONO % 7.7 % (1.7-9.3); PLATELET COUNT 363 K/mm3 (130-400); RED BLOOD COUNT 2.72 M/mm3 (4.10-5.30); REDCELL DISTRIBUTION WIDTH-CV 16.8 % (11.5-14.5)
[2020-08-16 08:51] LABS: HEMATOCRIT 24.2 % (37.0-47.0); HEMOGLOBIN 7.8 g/dl (12.5-16.0); MEAN CORPUSCULAR HEMOGLOBIN 29 pg (27.0-31.0)
[2020-08-16 09:00] LABS: CALCIUM 8.8 mg/dL (8.4-10.2); CREATININE, serum 0.84 (0.52-1.25); POTASSIUM 3.4 mmol/L (3.4-5.0)
--- NOTE | 2020-08-16 10:16 | NUR ---
PT is recommending a FWW and home health. The patient has Medicaid [facility] and they do not cover for home health PT/OT. KG informed the patient of this and discussed doing outpatient PT/OT. The patient reports that she is not happy right now and would need to think about it. She states that she would be interested in getting a FWW though from [facility]. KG contacted and emailed the FWW order to Kamille at [facility]. Kamille reports that they will deliver the FWW to the patient's room today. KG contacted the patient's son, Georgi, to review the above. The patient's other son, Raj, answered his phone. Raj reports no concerns with the patient returning home upon discharge. SW to continue to follow.
--- NOTE | 2020-08-16 10:35 | NUR ---
Pt. upset that she is unable to eat anything but clear fluids. Stated that her stomach is upset because she is hungry. Patient agitated and refusing cares. Dr. Callahan changed diet to general diet and food ordered. PRN tylenol given for pain as ordered. Patient denies any further requests at this time. Will continue to monitor. Call light within reach. Fall percautions in place.
[2020-08-16 11:42] VITALS: BP 137/84; PULSE 94; TEMP 97.8
--- NOTE | 2020-08-16 12:19 | NUR ---
K+ replacement given. Patient voiced a concern about not feeling important. I assured her that we are here to help with anything that she may need. I showed her how to use the call light again and urged her to call if she needed anything. Patient voiced that she understood and that she was feeling better. Fiance at the bedside. Will continue to monitor. Call light within reach. Fall percautions in place.
--- NOTE | 2020-08-16 13:23 | NUR ---
[facility] delivered the FWW to the patient's room.
[2020-08-16 16:25] VITALS: BP 137/84; PULSE 86; TEMP 97.9
--- NOTE | 2020-08-16 17:17 | NUR ---
Patient in a much better mood this afternoon/evening. IV fluids DC'd. Patient given education packet about ulcers and protonix. Patient explained that this information has never been explained to her before and that she now understands what is going on with her. PtRick carlton was at the bedside for the better half of the afternoon. He has now left. Patient is now resting in her bed waiting for supper. Will continue to monitor. Call light within reach. Fall percautions in place.
[2020-08-16 19:40] VITALS: BP 154/89; PULSE 107; TEMP 98.3
[2020-08-17 01:31] VITALS: BP 142/82; PULSE 99; TEMP 98.1
[2020-08-17 03:52] LABS: COLLECTION METHOD CLEAN CATCH
[2020-08-17 03:54] VITALS: BP 151/84; PULSE 96; TEMP 97.8
[2020-08-17 03:58] LABS: MUCOUS Present /lpf; PH 7 (5-8); SQUAMOUS EPITHELIAL 0-2 /hpf; URINE APPEARANCE Clear; URINE BACTERIA None Seen /hpf; URINE BILIRUBIN Negative (NEGATIVE); URINE BLOOD Negative (NEGATIVE); URINE COLOR Straw; URINE GLUCOSE 1+ (NEGATIVE); URINE KETONE Negative (NEGATIVE); URINE LEUKOCYTE ESTERASE Negative (NEGATIVE); URINE NITRATE Negative (NEGATIVE); URINE PROTEIN(semi-quant) Negative (NEGATIVE); URINE UROBILINOGEN Negative (NEGATIVE)
--- NOTE | 2020-08-17 06:14 | NUR ---
PATIENT HAS BEEN EDUCATED MULTIPLE TIMES NOT TO GET OUT OF BED BY HERSELF. PATIENT STATED "I'M GOING TO [facility]UCKING [facility]MY THIS HOSPITAL IF I FALL." HIGH FALL RISK PRECAUTIONS IN PLACE. [facility] REPORTED TO THIS NURSE AND CHARGE NURSE, SUE, THAT PATIENT STATED "I'M GOING TO FALL ON PURPOSE NEXT TIME."
[2020-08-17 06:39] LABS: CALCIUM 9.4 mg/dL (8.4-10.2); CREATININE, serum 0.8 (0.52-1.25); POTASSIUM 3.5 mmol/L (3.4-5.0)
[2020-08-17 06:48] LABS: BASO % 0.1 % (0.0-2.0); EOS # 0.1 (0.0-0.7); EOS % 1.7 % (0-4.0); GRAN # 5.3 (1.4-6.5); GRAN % 67.5 % (42.2-75.2); LYMPH # 1.8 (1.2-3.4); LYMPH % 22.8 % (20.0-51.0); MEAN CELL VOLUME 90 fl (80.0-100.0); MEAN CORPUSCULAR HGB CONC 31 g/dl (33.0-37.0); MEAN PLATELET VOLUME 9.2 fl (7.4-10.4); MONO # 0.6 (0.1-0.6); MONO % 7.4 % (1.7-9.3); PLATELET COUNT 398 K/mm3 (130-400); RED BLOOD COUNT 2.76 M/mm3 (4.10-5.30); REDCELL DISTRIBUTION WIDTH-CV 16.8 % (11.5-14.5)
--- NOTE | 2020-08-17 06:59 | NUR ---
PATIENT JUST LEFT THE HOSPITAL AMA VIA A TAXI THAT SHE CALLED. PATIENT WOULD NOT STATE WHAT SHE WAS ANGRY ABOUT JUST STATED, "GET OUTTA MY FACE." PATIENT PULLED OUT HER PICC LINE, THREW HER WATER ACROSS THE ROOM AND RIPPED OFF HER TELEMETRY BOX AND LEADS. EDUCATED PATIENT ON THE RISKS OF LEAVING THE HOSPITAL AND THE DANGER OF PULLING OUT THE PICC LINE LIKE SHE DID. PATIENT TOLD ME TO GET OUT OF HER ROOM AND LEAVE HER ALONE.
[2020-08-17 07:16] LABS: HEMATOCRIT 24.9 % (37.0-47.0); HEMOGLOBIN 7.8 g/dl (12.5-16.0); MEAN CORPUSCULAR HEMOGLOBIN 28 pg (27.0-31.0)
[2020-08-17] MEDS ORDERED: PROTONIX 40MG T40 MG PO (07:30)
== END 2020-08-17 07:00 | disposition left against medical advice (07) | DRG 377 ==
LOC: COL.ER 11:58 → MEDICAL 13:38 → ICU 13:38 → MEDICAL 08-15 15:29
PROVIDERS: Hospitalist; Physician Assistant; ADMIT Student in an Organized Health Care Education/Training Program
PROC: 02HV33Z Insertion of Infusion Device into Superior Vena Cava, Percutaneous Approach (ICD-10-PCS; principal; 2020-08-14)
PROC: 0DB68ZX Excision of Stomach, Via Natural or Artificial Opening Endoscopic, Diagnostic (ICD-10-PCS; 2020-08-15)
DX: K25.4 Chronic or unspecified gastric ulcer with hemorrhage (principal); G93.41 Metabolic encephalopathy; E87.2 Acidosis; R65.10 Systemic inflammatory response syndrome (SIRS) of non-infectious origin without acute organ dysfunction; D62 Acute posthemorrhagic anemia; N17.9 Acute kidney failure, unspecified; E87.1 Hypo-osmolality and hyponatremia; I95.9 Hypotension, unspecified; D47.3 Essential (hemorrhagic) thrombocythemia; E03.9 Hypothyroidism, unspecified; R07.9 Chest pain, unspecified; E87.6 Hypokalemia; E66.01 Morbid (severe) obesity due to excess calories; E88.09 Other disorders of plasma-protein metabolism, not elsewhere classified; I12.9 Hypertensive chronic kidney disease with stage 1 through stage 4 chronic kidney disease, or unspecified chronic kidney disease; N18.9 Chronic kidney disease, unspecified; F17.210 Nicotine dependence, cigarettes, uncomplicated; Z87.11 Personal history of peptic ulcer disease; Z68.36 Body mass index [BMI] 36.0-36.9, adult
CPT/HCPCS: 99223-AI; 99233-AI; 99239; C1751; C9113; J2060; J2250; J2543; J2704; J3370; J3480; J7030; J7050; P9016

== ENCOUNTER 2021-07-16 18:43 | Emergency (ER) | payer MEDICAID ==
[~2021-07-16] VITALS: Ht 175.3 cm; Wt 120.5 kg
[~2021-07-16 18:43] MED LIST changes: +DYAZIDE 25 MG-31 CAP PO
[2021-07-16 18:47] VITALS: TEMP 98.7
[2021-07-16 19:45] LABS: BASO % 0.2 % (0.0-2.0); GRAN # 4.1 K/mm3 (1.4-6.5); GRAN % 73.7 % (42.2-75.2); HEMATOCRIT 41.6 % (37.0-47.0); HEMOGLOBIN 13.8 g/dl (12.5-16.0); LYMPH # 1.1 K/mm3 (1.2-3.4); LYMPH % 20.3 % (20.0-51.0); MEAN CELL VOLUME 89 fl (80.0-100.0); MEAN CORPUSCULAR HEMOGLOBIN 30 pg (27-31); MEAN CORPUSCULAR HGB CONC 33 g/dl (33.0-37.0); MEAN PLATELET VOLUME 9.9 fl (7.4-10.4); MONO # 0.3 K/mm3 (0.1-0.6); MONO % 5.6 % (1.7-9.3); PLATELET COUNT 295 K/mm3 (130-400); RED BLOOD COUNT 4.67 M/mm3 (4.10-5.30); REDCELL DISTRIBUTION WIDTH-CV 13.2 % (11.5-14.5)
[2021-07-16 20:05] LABS: ALBUMIN 3.8 gm/dL (3.5-5.0); BILIRUBIN,TOTAL 0.5 mg/dL (0.2-1.2); C-REACTIVE PROTEIN 1.9 mg/dL (0.00-0.50); CALCIUM 10.2 mg/dL (8.4-10.2); CREATININE, serum 0.75 mg/dL (0.57-1.11); POTASSIUM 3.8 mmol/L (3.5-4.5); TOTAL PROTEIN 8.4 gm/dL (6.2-8.1)
[2021-07-16 21:02] LABS: COLLECTION METHOD CLEAN CATCH
[2021-07-16 21:13] LABS: MUCOUS Present (NOT PRESENT); PH 6 (5-8); URINE APPEARANCE Hazy (CLEAR/HAZY); URINE BACTERIA None Seen /hpf (NONE SEEN); URINE BILIRUBIN Negative (NEGATIVE); URINE BLOOD Negative (NEGATIVE); URINE COLOR Yellow (YELLOW); URINE GLUCOSE 1+ (NEGATIVE); URINE KETONE 1+ (NEGATIVE); URINE LEUKOCYTE ESTERASE Negative (NEGATIVE); URINE NITRATE Negative (NEGATIVE); URINE PROTEIN(semi-quant) Negative (NEGATIVE); URINE RBC 0-2 /hpf (0-2); URINE UROBILINOGEN Negative (NEGATIVE)
[2021-07-16 21:32] LABS: TRICYCLIC ANTIDEPRESS URINE NEGATIVE
[2021-07-16] MEDS ORDERED: PRILOSEC 20MG20 MG PO (21:34)
[2021-07-16 22:11] VITALS: BP 165/100; PULSE 58
== END 2021-07-16 22:11 | disposition home or self-care (01) ==
LOC: COL.ER 18:43
PROVIDERS: Family Medicine
DX: R05.9 Cough, unspecified (principal)
CPT/HCPCS: C9113; J2405; J7120

== ENCOUNTER 2023-10-22 11:50 | Emergency (ER) | payer MEDICAID ==
[~2023-10-22] VITALS: Ht 175.3 cm; Wt 106.8 kg
[~2023-10-22 11:50] MED LIST changes: +PRILOSEC 20MG20 MG PO
[2023-10-22 14:46] LABS: COLLECTION METHOD CLEAN CATCH
[2023-10-22 15:04] LABS: BASO % 0.4 % (0.0-2.0); EOS # 0.2 K/mm3 (0.0-0.7); EOS % 4.5 % (0.0-4.0); GRAN # 1.7 K/mm3 (1.4-6.5); GRAN % 34.3 % (42.2-75.2); HEMOGLOBIN 13.1 g/dl (12.5-16.0); LYMPH # 2.6 K/mm3 (1.2-3.4); LYMPH % 53.5 % (20.0-51.0); MEAN CELL VOLUME 95 fl (80.0-100.0); MEAN CORPUSCULAR HEMOGLOBIN 30 pg (27-31); MEAN CORPUSCULAR HGB CONC 32 g/dl (33.0-37.0); MEAN PLATELET VOLUME 10.3 fl (7.4-10.4); MONO # 0.4 K/mm3 (0.1-0.6); MONO % 7.1 % (1.7-9.3); PLATELET COUNT 289 K/mm3 (130-400); RED BLOOD COUNT 4.34 M/mm3 (4.10-5.30); REDCELL DISTRIBUTION WIDTH-CV 13.4 % (11.5-14.5)
[2023-10-22 15:07] LABS: ALANINE AMINOTRANSFERASE 12 U/L (0-55); ALBUMIN 3.7 g/dL (3.5-5.0); ALKALINE PHOSPHATASE 76 U/L (40-150); ANION GAP 11 mmol/L (7-16); AST,SGOT 19 U/L (5-34); BLOOD UREA NITROGEN 14 mg/dL (7-19); CALCIUM 10.9 mg/dL (8.4-10.2); CHLORIDE 109 mEq/L (98-107); CREATININE, serum 0.79 mg/dL (0.57-1.11); GLUCOSE 80 mg/dL (70-99); SODIUM 140 mEq/L (136-145); TOTAL PROTEIN 7.8 g/dl (6.2-8.1)
[2023-10-22 15:15] LABS: URINE APPEARANCE CLEAR (CLEAR/HAZY); URINE BLOOD NEGATIVE (NEGATIVE); URINE COLOR YELLOW (YELLOW); URINE GLUCOSE NEGATIVE (NEGATIVE); URINE KETONE NEGATIVE (NEGATIVE); URINE NITRATE NEGATIVE (NEGATIVE); URINE PROTEIN(semi-quant) NEGATIVE (NEGATIVE); URINE UROBILINOGEN 0.2 E.U/dL (0.2-1.0)
[2023-10-22 15:19] LABS: TROPONIN-I < 0.010 ng/mL (0.00-0.033)
[2023-10-22 16:15] LABS: BILIRUBIN,TOTAL 0.5 mg/dL (0.2-1.2)
[2023-10-22] MEDS ORDERED: Acetaminophen 500 MG TAB PO ONE (16:15)
[2023-10-22] MEDS ORDERED: NORVASC 10MG10 MG PO (17:53)
[2023-10-22 18:02] VITALS: BP 184/98; PULSE 62; TEMP 98
== END 2023-10-22 18:03 | disposition home or self-care (01) ==
LOC: COL.ER 11:50
PROVIDERS: Emergency Medicine
DX: I10 Essential (primary) hypertension (principal); Z79.899 Other long term (current) drug therapy